=== PATIENT | female | born 1985 | race Caucasian/White ===

== ENCOUNTER 2017-01-15 19:25 | Emergency (ER) | payer MEDICAID, OTHER ==
[~2017-01-15] VITALS: Ht 157.5 cm; Wt 75.0 kg
[2017-01-15 20:01] LABS: BLOOD UREA NITROGEN 7 mg/dL (7-18)
[2017-01-15 20:18] VITALS: BP 108/76
[2017-01-15 20:27] LABS: DAU SCREEN DISCLAIMER
[2017-01-15] MEDS ORDERED: metFORMIN 500 MG TABLET PO ONE (20:30)
[2017-01-15 20:40] LABS: HCG UR OBC PASS
== END 2017-01-15 22:01 | disposition home or self-care (01) ==
LOC: ED 20:51
DX: Z00.8 Encounter for other general examination (principal); E11.65 Type 2 diabetes mellitus with hyperglycemia
CPT/HCPCS: 36415; 80048; 80307; 81025; 82040; 85025; 99284

== ENCOUNTER 2017-01-17 11:00 | Emergency (ER) | payer MEDICAID ==
[~2017-01-17] VITALS: Ht 157.5 cm; Wt 76.9 kg
[2017-01-17 11:05] VITALS: BP 110/77
[2017-01-17] MEDS ORDERED: SODIUM CHLORIDE FLUSH 10ML SYR IVF ONE (12:30)
[2017-01-17] MEDS ORDERED: SODIUM CHLORIDE 0.9% 1,000ML IVBOLUS ONE (12:30)
[2017-01-17 12:31] LABS: PH, VENOUS 7.371 pH (7.320-7.420)
[2017-01-17 12:44] LABS: ASPARTATE AMINO TRANSFERASE 18 U/L (15-37); BLOOD UREA NITROGEN 12 mg/dL (7-18)
[2017-01-17 14:16] LABS: PATH.CAST-FLAG NOT PRESENT; SPERM-FLAG NOT PRESENT; SRC-FLAG NOT PRESENT; XTAL-FLAG NOT PRESENT; YLC-FLAG NOT PRESENT
[2017-01-17] MEDS ORDERED: CEFTRIAXONE PMX 1GM/50ML 50 ML ONE (14:57)
[2017-01-17] MEDS ORDERED: INSULIN REGULAR 100 UNITS/ML, 3ML VIAL SQ-INSULIN ONE (15:00)
[2017-01-17] MEDS ORDERED: CEFTRIAXONE PMX 1GM/50ML 50 ML IV ONE (15:00)
[2017-01-17] MEDS ORDERED: INSULIN REGULAR 100 UNITS/ML, 3ML VIAL SQ-INSULIN SCH (15:00)
== END 2017-01-17 16:06 | disposition home or self-care (01) ==
LOC: ED 14:22
DX: E11.65 Type 2 diabetes mellitus with hyperglycemia (principal); N12 Tubulo-interstitial nephritis, not specified as acute or chronic
CPT/HCPCS: 36415; 80053; 81001; 82010; 82803; 82962; 85025; 87086; 96361; 96365; 96372; 99284; J0696; J7030

== ENCOUNTER 2017-11-25 17:20 | Emergency (ER) | payer MEDICAID ==
[~2017-11-25] VITALS: Ht 157.5 cm; Wt 83.2 kg
[~2017-11-25 17:20] MED LIST: METF500T4 PO
[2017-11-25 17:22] VITALS: BP 103/68
[2017-11-25 18:10] LABS: BASOPHILS # (AUTO) 0.05 x10^3/uL (0-0.1); BASOPHILS % (AUTO) 1 % (0-1); EOSINOPHILS # (AUTO) 0.13 x10^3/uL (0-0.4); EOSINOPHILS % (AUTO) 2 % (1-7); LYMPHOCYTES % (AUTO) 23 % (22-44); MD NO; MEAN CORPUSCULAR HEMOGLOBIN 30.2 pg (27.0-34.8); MEAN CORPUSCULAR HGB CONC 33.5 g/dL (32.4-35.8); MEAN PLATELET VOLUME 9.4 fL (7.4-10.4); MONOCYTES # (AUTO) 0.48 x10^3/uL (0.2-0.8); MONOCYTES % (AUTO) 6 % (2-9); NEUTROPHILS # (AUTO) 5.86 x10^3/uL (1.8-6.8); NEUTROPHILS % (AUTO) 69 % (42-75); PLATELET COUNT 243 x10^3/uL (130-400); RED CELL DISTRIBUTION WIDTH 13.5 % (9.6-15.2)
[2017-11-25 18:22] LABS: ALANINE AMINOTRANSFERASE 25 U/L (12-78); ALBUMIN 4.1 g/dL (3.4-5.0); ANION GAP 7 mmol/L (5-15); CALCIUM 8.7 mg/dL (8.5-10.1); CHLORIDE 107 mmol/L (98-107); CREATININE 0.83 mg/dL (0.55-1.02)
[2017-11-25 18:26] LABS: ALKALINE PHOSPHATASE 71 U/L (45-117); BILIRUBIN,TOTAL 0.6 mg/dL (0.2-1.0); TOTAL PROTEIN 8.2 g/dL (6.4-8.2)
[2017-11-25 19:27] LABS: CULTURE INDICATED? YES; MICROSCOPIC INDICATED
[2017-11-25] MEDS ORDERED: MAALOX/HYOSCYAMINE/LIDOCAINE 45 ML BTL PO ONE (19:30)
[2017-11-25] MEDS ORDERED: MAALOX/HYOSCYAMINE/LIDOCAINE 45 ML BTL ONE (19:37)
== END 2017-11-25 20:39 | disposition home or self-care (01) ==
LOC: ED 20:33
DX: K25.0 Acute gastric ulcer with hemorrhage (principal)
CPT/HCPCS: 36415; 71046; 80053; 81001; 83690; 84703; 85025; 86677; 87086; 99285

== ENCOUNTER 2017-12-26 01:39 | Emergency (ER) | payer MEDICAID ==
[~2017-12-26] VITALS: Ht 154.9 cm; Wt 80.0 kg
[2017-12-26] MEDS ORDERED: PROMETHAZINE 25 MG/ML, 1ML IM ONE (02:00)
[2017-12-26] MEDS ORDERED: MAALOX/HYOSCYAMINE/LIDOCAINE 45 ML BTL PO ONE (02:00)
[2017-12-26] MEDS ORDERED: FAMOTIDINE 20 MG/2 ML IVP ONE (02:00)
[2017-12-26 02:01] LABS: BASOPHILS # (AUTO) 0.04 x10^3/uL (0-0.1); BASOPHILS % (AUTO) 1 % (0-1); EOSINOPHILS # (AUTO) 0.13 x10^3/uL (0-0.4); EOSINOPHILS % (AUTO) 1 % (1-7); LYMPHOCYTES # (AUTO) 1.79 x10^3/uL (1-3.4); LYMPHOCYTES % (AUTO) 20 % (22-44); MD NO; MEAN CORPUSCULAR HEMOGLOBIN 30.4 pg (27.0-34.8); MEAN CORPUSCULAR HGB CONC 33.7 g/dL (32.4-35.8); MEAN PLATELET VOLUME 9.5 fL (7.4-10.4); MONOCYTES # (AUTO) 0.39 x10^3/uL (0.2-0.8); MONOCYTES % (AUTO) 4 % (2-9); NEUTROPHILS # (AUTO) 6.52 x10^3/uL (1.8-6.8); NEUTROPHILS % (AUTO) 74 % (42-75); PLATELET COUNT 231 x10^3/uL (130-400); RED BLOOD COUNT 4.99 x10^6/uL (3.82-5.3); RED CELL DISTRIBUTION WIDTH 13.8 % (9.6-15.2)
[2017-12-26] MEDS ORDERED: PROMETHAZINE 25 MG/ML, 1ML ONE (02:07)
[2017-12-26] MEDS ORDERED: MORPHINE SULFATE 4 MG/ML, 1ML ONE (02:07)
[2017-12-26] MEDS ORDERED: MAALOX/HYOSCYAMINE/LIDOCAINE 45 ML BTL ONE (02:08)
[2017-12-26] MEDS ORDERED: FAMOTIDINE 20 MG/2 ML ONE (02:08)
[2017-12-26 02:09] LABS: ALANINE AMINOTRANSFERASE 28 U/L (12-78); ALBUMIN 3.9 g/dL (3.4-5.0); ANION GAP 9 mmol/L (5-15); CALCIUM 9.2 mg/dL (8.5-10.1); CHLORIDE 111 mmol/L (98-107); CREATININE 0.94 mg/dL (0.55-1.02)
[2017-12-26] MEDS: MORPHINE SULFATE 4 MG/ML, 1ML IVPush PRN ×2 (02:09→02:30)
[2017-12-26 02:15] LABS: ALKALINE PHOSPHATASE 83 U/L (45-117); BILIRUBIN,TOTAL 0.5 mg/dL (0.2-1.0); TOTAL PROTEIN 7.5 g/dL (6.4-8.2)
[2017-12-26 03:31] VITALS: BP 108/62
== END 2017-12-26 03:32 | disposition home or self-care (01) ==
LOC: ED 01:44
DX: R07.89 Other chest pain (principal); R11.2 Nausea with vomiting, unspecified; E11.9 Type 2 diabetes mellitus without complications; Z90.49 Acquired absence of other specified parts of digestive tract; Z85.41 Personal history of malignant neoplasm of cervix uteri
CPT/HCPCS: 36415; 71045; 80053; 83690; 84703; 85025; 93005; 96372; 96374; 96375; 99285; J2550; S0028

== ENCOUNTER 2018-08-27 05:56 | Emergency (ER) | payer MEDICAID ==
[~2018-08-27] VITALS: Ht 157.5 cm; Wt 80.9 kg
[~2018-08-27 05:56] MED LIST changes: +METF500T17 PO; -METF500T4 PO
[2018-08-27 05:58] VITALS: BP 111/77
[2018-08-27] MEDS ORDERED: IBUPROFEN 600 MG TABLET ONE (06:34)
[2018-08-27] MEDS ORDERED: ACETAMINOPHEN 500 MG TABLET ONE (06:34)
[2018-08-27] MEDS ORDERED: ACETAMINOPHEN 500 MG TABLET PO ONE (07:00)
[2018-08-27] MEDS ORDERED: IBUPROFEN 200 MG TABLET PO ONE (07:00)
== END 2018-08-27 06:51 | disposition home or self-care (01) ==
LOC: ED 06:35
DX: J00 Acute nasopharyngitis [common cold] (principal); E11.9 Type 2 diabetes mellitus without complications
CPT/HCPCS: 99283